=== PATIENT | male | born 1990 | race American Indian/Alaskan Native ===

== ENCOUNTER 2018-04-09 20:46 | Emergency (ER) | payer SELFPAY ==
[2018-04-09 21:18] VITALS: BP 127/94
[2018-04-09] MEDS ORDERED: IBUPROFEN PO ONE (23:08)
[2018-04-09] MEDS ORDERED: DELTASONE PO ONE (23:08)
--- NOTE | 2018-04-09 23:12 | Emergency Department Report ---
Upper Extremity - HPI Chief Complaint: Extremity Problem,Nontraumatic Stated Complaint: RT SHOULDER PAIN Time Seen by Provider: 04/09/18 22:50 Upper Extremity: Right Shoulder Occurred When: >5 Days (3 months.) Severity: moderate Symptoms: Yes Pain with Movement, Yes Limited Range of Movement, No Deformity, No Numbness, No Weakness, No Swelling, No Bruising/Ecchymosis, No Laceration or Abrasion Other History: 27-year-old -[place] male presents with right shoulder pain for the past 3 weeks. Patient denies any trauma. He reports that he lives 150 pounds daily at work. Patient has taken nothing for pain. She reports a past medical history of headaches. ED Review of Systems ROS: Stated complaint: RT SHOULDER PAIN Other details as noted in HPI Comment: All other systems reviewed and negative Musculoskeletal: arthralgia, myalgia ED Past Medical Hx - Past Medical History Previous Medical History?: Yes Hx Headaches / Migraines: Yes Hx Seizures: No - Surgical History Past Surgical History?: No - Social History Smoking Status: Current Some Day Smoker Substance Use Type: None, Alcohol - Medications Home Medications: Home Medications Medication Instructions Recorded Confirmed Last Taken Type Diphenhydramine HCl [Benadryl 25 mg PO Q6H #30 tablet 05/27/15 Unknown Rx Allergy TAB] methylPREDNISolone [Medrol] 4 mg PO QDAY #1 tab.ds.pk 05/27/15 Unknown Rx Ibuprofen [Motrin 800 MG tab] 800 mg PO Q8HR #30 tablet 04/09/18 Unknown Rx Upper Extremity Exam - Exam General: Vital signs noted. No distress. Alert and acting appropriately. Head and Torso: Yes HEENT Abnormality, No Neck Tenderness Shoulder Exam: Yes Shoulder Tenderness (posterior), Yes Normal Range of Motion in Shoulder, No Clavicle Tenderness, No Shoulder Deformity, No AC Joint Tenderness Arm Exam: No Arm/Humerus Tenderness, No Arm Deformity Elbow: No Elbow Tenderness, No Normal Range of Motion in Elbow, No Elbow Deformity Forearm: No Forearm Tenderness, No Forearm Deformity, No Pain with Pronation, No Pain with Supination Wrist: Yes Normal ROM in Wrist, No Wrist Tenderness, No Wrist Deformity, No Snuffbox Tenderness, No Pain with Axial Thumb Compression Hand: Yes Normal ROM in Digit(s), No Hand Tenderness, No Hand Deformity, No Digit Tenderness, No Digit(s) Deformity, No Tendon Dysfunction ED Course Vital Signs 04/09/18 21:15 Temperature 98.8 F Pulse Rate 66 Respiratory 20 Rate Blood Pressure 127/94 O2 Sat by Pulse 98 Oximetry ED Medical Decision Making - Medical Decision Making Patient has been evaluated by this provider in fast track. Patient was given ibuprofen and prednisone for pain management. Patient will be discharged home on ibuprofen and instructed to take breakfast lunch and dinner for the first 3 days and then as needed. I stressed importance of drinking plenty of fluids such as water while taking ibuprofen. I also discussed with patient to follow up with orthopedics if his symptoms persist or gets worse. I discussed the patient that his shoulder strengthening to be due from having heavy objects on a repetitive basis. Patient verbalized understanding. Critical care attestation.: If time is entered above; I have spent that time in minutes in the direct care o f this critically ill patient, excluding procedure time. ED Disposition Clinical Impression: Right shoulder strain Qualifiers: Encounter type: initial encounter Qualified Code(s): S46.911A - Strain of unspecified muscle, fascia and tendon at shoulder and upper arm level, right arm, initial encounter Disposition: DC-01 TO HOME OR SELFCARE Is pt being admited?: No Does the pt Need Aspirin: No Condition: Stable Instructions: Rotator Cuff Injury (ED) Additional Instructions: Please take pain medication as prescribed. Please increase you water intake w hile taking ibuprofen. Please follow-up with orthopedic provider if the symptoms persist or gets worse. Prescriptions: Ibuprofen [Motrin 800 MG tab] 800 mg PO Q8HR #30 tablet Referrals: DIANA BAIRD DO [Primary Care Provider] - 3-5 Days JACEY TRIPLETT MD [Staff Physician] - 3-5 Days Forms: Work/School Release Form(ED)
== END 2018-04-09 23:20 | disposition home or self-care (01) ==
LOC: ED 20:46
DX: S46.911A Strain of unspecified muscle, fascia and tendon at shoulder and upper arm level, right arm, initial encounter (principal); G43.909 Migraine, unspecified, not intractable, without status migrainosus; F17.200 Nicotine dependence, unspecified, uncomplicated; X58.XXXA Exposure to other specified factors, initial encounter; Y93.89 Activity, other specified; Y92.89 Other specified places as the place of occurrence of the external cause; Y99.8 Other external cause status
CPT/HCPCS: 99282; J7512